=== PATIENT | female | born 1960 | race Caucasian/White ===

== ENCOUNTER 2016-06-08 09:12 | Day surgery (SDC) | payer OTHER ==
[2016-06-02 08:58] VITALS: BP 149/93
[~2016-06-08] VITALS: Ht 180.3 cm; Wt 135.0 kg
[~2016-06-08 09:12] MED LIST: No meds per pt.
[2016-06-08] MEDS ORDERED: LACTATED RINGERS 1,000 ML IV SCH (09:51)
[2016-06-08 09:53] VITALS: BP 149/93
[2016-06-08] MEDS ORDERED: LIDOCAINE 1%, 2ML SQ PRN (10:00)
[2016-06-08] MEDS ORDERED: MIDAZOLAM 1 MG/ML, 2ML ONE (10:15)
[2016-06-08] MEDS ORDERED: FENTANYL PF 250 MCG/5ML ONE (10:15)
[2016-06-08] MEDS ORDERED: METOPROLOL 1 MG/ML, 5ML IV PRN (11:00)
[2016-06-08] MEDS ORDERED: ACETAMINOPHEN 325 MG TABLET PO PRN (11:00)
[2016-06-08] MEDS ORDERED: HYDROmorphone 1 MG/ML, 1ML IV PRN (11:00)
[2016-06-08] MEDS ORDERED: KETOROLAC 30 MG/1 ML IV PRN (11:00)
[2016-06-08] MEDS ORDERED: FENTANYL PF 100 MCG/2ML IV PRN (11:00)
[2016-06-08] MEDS ORDERED: OXYcodone 5 MG/5 ML ORAL.SOL UDC PO PRN (11:00)
[2016-06-08] MEDS ORDERED: MEPERIDINE/PF 25MG/0.5ML IVPush PRN (11:00)
[2016-06-08] MEDS ORDERED: hydrALAzine 20 MG/ML, 1ML IV PRN (11:00)
[2016-06-08] MEDS ORDERED: PROMETHAZINE 25 MG/ML, 1ML IV PRN (11:00)
[2016-06-08] MEDS ORDERED: PROMETHAZINE 25 MG/ML, 1ML ONE (12:09)
[2016-06-08] MEDS ORDERED: ONDANSETRON 2MG/ML, 2ML ONE ×2 (12:10→16:11)
[2016-06-08] MEDS ORDERED: SUCCINYLCHOLINE 20 MG/ML, 10ML ONE (16:11)
[2016-06-08] MEDS ORDERED: PROPOFOL 10 MG/ML, 20ML ONE (16:11)
[2016-06-08] MEDS ORDERED: DEXAMETHASONE 4 MG/ML, 1ML ONE (16:11)
== END 2016-06-08 14:10 | disposition home or self-care (01) ==
LOC: OUT 09:12
PROVIDERS: ATTEND Internal Medicine Geriatric Medicine
DX: K80.50 Calculus of bile duct without cholangitis or cholecystitis without obstruction (principal); Z46.59 Encounter for fitting and adjustment of other gastrointestinal appliance and device; E66.01 Morbid (severe) obesity due to excess calories; Z68.41 Body mass index [BMI] 40.0-44.9, adult; Z98.84 Bariatric surgery status; Z90.710 Acquired absence of both cervix and uterus; Z80.51 Family history of malignant neoplasm of kidney
CPT/HCPCS: 43264; 43276; 74328; C1769; C1894; C2625; J0330; J1100; J2250; J2405; J2550; J2704; J3010; J7120

== ENCOUNTER 2016-07-20 08:19 | Day surgery (SDC) | payer OTHER ==
[2016-07-06 09:18] VITALS: BP 134/76
[~2016-07-20] VITALS: Ht 180.3 cm; Wt 134.0 kg
[2016-07-20] MEDS ORDERED: LACTATED RINGERS 1,000 ML IV SCH (09:00)
[2016-07-20] MEDS ORDERED: MIDAZOLAM 1 MG/ML, 2ML ONE ×2 (09:05)
[2016-07-20] MEDS ORDERED: FENTANYL PF 100 MCG/2ML ONE ×3 (09:05→09:27)
[2016-07-20] MEDS ORDERED: PROPOFOL 10 MG/ML, 20ML ONE (09:14)
[2016-07-20] MEDS ORDERED: KETOROLAC 30 MG/1 ML ONE (09:14)
[2016-07-20] MEDS ORDERED: ONDANSETRON 2MG/ML, 2ML IVPush PRN (09:30)
[2016-07-20] MEDS ORDERED: ACETAMINOPHEN 325 MG TABLET PO PRN (09:30)
[2016-07-20] MEDS ORDERED: PROMETHAZINE 25 MG/ML, 1ML IV PRN (09:30)
[2016-07-20] MEDS ORDERED: MEPERIDINE/PF 25MG/0.5ML IVPush PRN (09:30)
[2016-07-20] MEDS ORDERED: HYDROmorphone 1 MG/ML, 1ML IV PRN (09:30)
[2016-07-20] MEDS ORDERED: hydrALAzine 20 MG/ML, 1ML IV PRN (09:30)
[2016-07-20] MEDS ORDERED: FENTANYL PF 100 MCG/2ML IV PRN (09:30)
[2016-07-20] MEDS ORDERED: LABETALOL 5MG/ML, 20ML IV PRN (09:30)
[2016-07-20] MEDS ORDERED: OMNIPAQUE 350 MG/ML, 50 ML BOTTLE ONE (10:26)
[2016-07-20] MEDS ORDERED: ACETAMINOPHEN 650 MG/20.3 ML UDC ONE (11:01)
[2016-07-20] MEDS ORDERED: ONDANSETRON 2MG/ML, 2ML ONE (13:03)
[2016-07-20] MEDS ORDERED: ONDANSETRON 2MG/ML, 2ML IVPush ONE (13:30)
== END 2016-07-20 13:50 | disposition home or self-care (01) ==
LOC: OUT 08:19
PROVIDERS: ATTEND Internal Medicine Geriatric Medicine
DX: T85.520A Displacement of bile duct prosthesis, initial encounter (principal); K80.50 Calculus of bile duct without cholangitis or cholecystitis without obstruction; Z90.710 Acquired absence of both cervix and uterus; Z80.51 Family history of malignant neoplasm of kidney; Y83.8 Other surgical procedures as the cause of abnormal reaction of the patient, or of later complication, without mention of misadventure at the time of the procedure
CPT/HCPCS: 43264; 43275; 74328; C1769; J1885; J2405; J2704; J3010; J7120; Q9967; J2250